=== PATIENT | male | born 1990 | race Caucasian/White ===

== ENCOUNTER 2018-04-04 17:59 | Emergency (ER) | payer OTHER ==
--- NOTE | 2018-04-04 18:25 | EDPHY ---
H & P Stated Complaint: Fell ~15 ft climbing wall-isolated R ankle injury Time Seen by Provider: 04/04/18 18:00 HPI/ROS: CHIEF COMPLAINT: Right ankle pain HISTORY OF PRESENT ILLNESS: 27-year-old male presents with right ankle pain. He was rock climbing in a gym and fell approximately 15 ft onto the mat. His foot became caught between the 2 mats and he twisted his ankle. Complains of moderate right ankle pain. He was able to ambulate and drive home. No other injuries. REVIEW OF SYSTEMS: No numbness, weakness, bleeding or other injuries - Medical/Surgical History Hx Asthma: No Hx Chronic Respiratory Disease: No Hx Diabetes: No Hx Cardiac Disease: No Hx Renal Disease: No Hx Cirrhosis: No Hx Alcoholism: No Hx HIV/AIDS: No Hx Splenectomy or Spleen Trauma: No Other PMH: denies - Social History Smoking Status: Never smoked Alcohol Use: Sober Drug Use: None - Physical Exam Exam: Alert, pleasant Head: Atraumatic Eyes: No conjunctival erythema ENT, Mouth: no bony tenderness Neck: Nontender, full range of motion without pain Respiratory: No chest wall tenderness, lungs clear bilaterally Cardiovascular: Regular rate and rhythm Abdomen: Abdomen is soft and nontender Skin: No lacerations, no abrasions Back: No midline T/L/S tenderness Extremities: Right ankle with swelling over the lateral malleolus and tenderness over the medial aspect of the ankle, without swelling. There is no posterior lateral malleolus tenderness, midfoot tenderness, or proximal fifth metatarsal tenderness. The ankle is stable and the Achilles tendon is intact. Vascular: Pedal pulses 2+ Neurologic: Ankle and foot with normal sensation and strength Skin: Intact Constitutional: Initial Vital Signs Temperature (C) 36.5 C 04/04/18 18:05 Heart Rate 78 04/04/18 18:05 Respiratory Rate 16 04/04/18 18:05 Blood Pressure 116/68 04/04/18 18:05 O2 Sat (%) 97 04/04/18 18:05 O2 Delivery Mode Room Air Allergies/Adverse Reactions: No Known Allergies Allergy (Unverified 04/04/18 18:05) Home Medications: Medication Instructions Recorded Hydrocodone/APAP 5/325 [[place] 1 - 2 tab PO Q4H PRN #10 tab 04/04/18 5/325] Hydrocodone/APAP 5/325 [[place] 1 - 2 tab PO Q4H PRN #10 tab 04/04/18 5/325] Medical Decision Making - Diagnostics Imaging Results: Imaging Impressions Ankle X-Ray 04/04/18 18:00 Impression: Mildly displaced and comminuted fracture of the medial talus. Extremity CT 04/04/18 18:45 Impression: Comminuted displaced intraarticular fracture of the talus. The displacement is more predominant medially, with involvement of the posterior and middle subtalar joint. Nondisplaced fracture of the sustentaculum jennifer. Results called and discussed with Ayde Prinec M.D., on April 04, 2018 at 1930. Imaging: Discussed imaging studies w/ call or contact centre manager Radiologist, I viewed and interpreted images myself Procedures: An Orthoglass posterior splint was placed by the senior quality control technician. Neurovascularly intact after application. ED Course/Re-evaluation: This patient presents after a 15 ft fall with right ankle pain. X-ray reveals a fracture of the talus. CT scan obtained to further delineate the fracture and reveals a comminuted and displaced talus fracture as well as a fracture of the calcaneus. Results discussed with the patient. He was placed in the posterior splint and on crutches. He will follow up with Ortho. A prepack of [place] was given. Differential Diagnosis: Differential diagnosis includes though it is not limited to open fracture, dislocation, tendon disruption, compartment syndrome, neurovascular compromise. - Data Points Medications Given: Discontinued Medications Hydrocodone Bitart/Acetaminophen ([place] 5/325mg Prepack#6) [facility] Stop: 04/04/18 20:00 Last Admin: 04/04/18 20:12 Dose: 1 btl Departure - Departure Disposition: Home, Routine, Self-Care Clinical Impression: Fracture of talus of right ankle, closed Qualifiers: Encounter type: initial encounter Talus location: body Fracture alignment: displaced Qualified Code(s): S92.121A - Displaced fracture of body of right talus, initial encounter for closed fracture Condition: Good Instructions: Hydrocodone/Acetaminophen (By mouth), Crutch Instructions (ED), Talar Fracture in Adults (ED) Additional Instructions: Take Tylenol 650 mg every 4 hours and/or Ibuprofen 600 mg every 8 hours with food as needed for pain. [place] contains Tylenol, so do not take these 2 medications within 4 hours of each other. Apply ice for 30 minutes at a time; 2-3 times per day for the next 1-2 days. Keep her leg elevated whenever possible. Call to make an appointment with Orthopedics. Referrals: Anand Marcus MD [Medical Doctor] - As per Instructions Prescriptions: Hydrocodone/APAP 5/325 [[place] 5/325] 1 - 2 tab PO Q4H PRN #10 tab PRN Reason: Pain, Moderate Hydrocodone/APAP 5/325 [[place] 5/325] 1 - 2 tab PO Q4H PRN #10 tab PRN Reason: Pain, Moderate
[2018-04-04] MEDS ORDERED: HYDROCOD/APAP 5/325 PREPACK#6 BTL TAKEHOME ONE (19:59)
[2018-04-04 20:20] VITALS: BP 112/70
== END 2018-04-04 20:22 | disposition home or self-care (01) ==
PROC: 2W3QX1Z Immobilization of Right Lower Leg using Splint (ICD-10-PCS; principal; 2018-04-04)
DX: S92.121A Displaced fracture of body of right talus, initial encounter for closed fracture (principal); W23.1XXA Caught, crushed, jammed, or pinched between stationary objects, initial encounter; Y93.31 Activity, mountain climbing, rock climbing and wall climbing; Y99.8 Other external cause status; Y92.9 Unspecified place or not applicable